=== PATIENT | female | born 1980 | race Caucasian/White ===

== ENCOUNTER 2017-09-26 15:48 | Emergency (ER) | payer MEDICAID, OTHER ==
[2017-09-26 16:02] VITALS: O2SAT 98
--- NOTE | 2017-09-26 16:08 | ERPHSYRPT ---
- History of Present Illness Time Seen by Provider: 09/26/17 16:03 Source: patient Patient Subjective Stated Complaint: PT states "I have two teeth that are really bothering me. One on the left upper and one on the right lower." Triage Nursing Assessment: PT alert and oriented X 3, skin pwd. PT ambulates without difficulty, able to speak in clear full sentences. Physician History: CC: toothaches Hx: 37 y/o patient with toothache. Has seen Dr Schmitt, was referred to [facility], can not go back. Has appt in 2 weeks with a dentist in [place]. Pain in right upper and lower tooth is worse. No fever. No diff breathing or swallowing. States not . No meds and no allergies. Severity: moderate Allergies/Adverse Reactions: No Known Drug Allergies Allergy (Unverified 10/27/13 18:23) Hx Tetanus, Diphtheria Vaccination/Date Given: Yes Hx Influenza Vaccination/Date Given: No Hx Pneumococcal Vaccination/Date Given: No Immunizations Up to Date: Yes - Review of Systems Constitutional: No Fever, No Chills Ears, Nose, & Throat: Mouth Pain (tooth) Respiratory: No Dyspnea Cardiac: No Chest Pain Abdominal/Gastrointestinal: No Abdominal Pain, No Vomiting - Past Medical History Pertinent Past Medical History: No - Past Surgical History Past Surgical History: Yes Gastrointestinal: Cholecystectomy - Social History Smoking Status: Never smoker How long have you smoked: YRS Exposure to second hand smoke: No Drug Use: none Patient Lives Alone: No - Female History Hx Now: No - Nursing Vital Signs Nursing Vital Signs: Initial Vital Signs Temperature 98.1 F 09/26/17 15:58 Pulse Rate 72 09/26/17 15:58 Respiratory Rate 18 09/26/17 15:58 Blood Pressure 115/64 09/26/17 15:58 O2 Sat by Pulse Oximetry 98 09/26/17 15:58 Pain Scale Pain Intensity 8 - Physical Exam General Appearance: alert Eye Exam: bilateral eye: PERRL Cardiovascular/Respiratory Exam: regular rate/rhythm Neurologic Exam: alert, oriented x 3, cooperative, sensation nml, No motor deficits Skin Exam: warm, dry, other (no facial cellulitis), No rash SpO2 Interpretation: normal SpO2: 98 Oxygen Delivery: Room Air Comments: Esotropia. Broken teeth. No trismus. Mild right upper molar gum swelling. - Course Nursing assessment & vital signs reviewed: Yes - Progress Progress Note: 09/26/17 16:06 Rx ketoprofen/ codiene/ pcn. Advised dental follow up. Counseled pt/family regarding: diagnosis, need for follow-up - Departure Time of Disposition: 16:06 Departure Disposition: Home Clinical Impression: Toothache Condition: Stable Critical Care Time: No Referrals: ASTRID PHELAN [Primary Care Provider] - Instructions: Tooth Decay, Adult (DC), Dental Pain (DC) Additional Instructions: Rx pcn. Rx ketoprofen. Rx codiene. See dentist as soon as possible. Prescriptions: Codeine Phosphate/APAP #3 [Tylenol #3 Tablet] 1 tab PO Q4-6HPRN PRN #15 tablet PRN Reason: Pain Ketoprofen 50 mg PO BID #15 capsule Penicillin V Potassium 500 mg PO QID #40 tablet
[2017-09-26 16:10] VITALS: BP 112/62; PULSE 70
== END 2017-09-26 16:14 | disposition home or self-care (01) ==
LOC: ED 15:48
DX: K08.89 Other specified disorders of teeth and supporting structures (principal)
CPT/HCPCS: 99284

== ENCOUNTER 2024-05-15 07:27 | Day surgery (SDC) | payer BC ==
[2024-05-15] MEDS ORDERED: Transderm Scop 1.5MG Patch ONE (07:30)
[2024-05-15] MEDS ORDERED: CEFAZOLIN 2 GM/100 ML NaCl 2 GM/100 ML IVPB IV ONE (07:30)
[2024-05-15] MEDS ORDERED: Lactated Ringers 1,000 ML IV ONE (07:30)
[2024-05-15 07:41] LABS: HCG URINE TEST NEGATIVE (NEGATIVE)
[2024-05-15 07:43] VITALS: O2SAT 97
[2024-05-15] MEDS: CEFAZOLIN 2 GM/100 ML NaCl 2 GM/100 ML IVPB IV SCH (07:43)
[2024-05-15] MEDS: Lactated Ringers 1,000 ML IV SCH (07:43)
[2024-05-15] MEDS: Transderm Scop 1.5MG Patch TOP PRN (07:43)
[2024-05-15] MEDS ORDERED: TORAdol 30 mg Injection ONE (09:18)
[2024-05-15] MEDS ORDERED: Decadron 4 MG INJ ONE (09:18)
[2024-05-15] MEDS ORDERED: DIPRIVAN 200 MG/20 ML IV ONE (09:18)
[2024-05-15] MEDS ORDERED: Xylocaine-Mpf 2% 5 Ml Vial ONE (09:18)
[2024-05-15] MEDS ORDERED: Zofran 4 MG/2 ML VIAL ONE (09:18)
[2024-05-15] MEDS ORDERED: Versed 2 MG/2 ML Injection ONE (09:19)
[2024-05-15] MEDS ORDERED: SUBLIMAZE 100 MCG/2 ML ONE (09:19)
[2024-05-15] MEDS ORDERED: Ephedrine Sulfate 50 MG/ML ONE (09:31)
[2024-05-15] MEDS ORDERED: ROBINUL ONE (09:35)
[2024-05-15 10:35] VITALS: RESP 16
[2024-05-15 10:48] VITALS: BP 113/71; PULSE 57; TEMP 98
--- NOTE | 2024-05-17 11:47 | OP ---
SURGERY DATE/TIME: 05/15/2024 PREOPERATIVE DIAGNOSIS: Menorrhagia. POSTOPERATIVE DIAGNOSIS: Menorrhagia. PROCEDURE: Hysteroscopy, dilatation and curettage with endometrial ablation using NovaSure. SURGEON: Gerard Garvey DO ASSISTANTS: Nidia Miranda ANESTHESIA: General. ESTIMATED BLOOD LOSS: Minimal. COMPLICATIONS: None. FINDINGS: The risks, benefits, indications, and alternatives of the procedure were reviewed with the patient prior to the procedure. The patient understood the risk of infection, bleeding, bowel injury, bladder injury, uterine perforation, pelvic infection, thromboembolic disorder associated with this surgery and desires to have this surgery as a possible means to alleviate her current medical condition. DESCRIPTION OF PROCEDURE AND FINDINGS: At this point, the patient was taken to the operating room, given general sedation, placed in a dorsal lithotomy position, prepped and draped in the usual sterile fashion. A weighted speculum was then placed into the patient's vagina, and the anterior lip of the cervix is grasped with a single-tooth tenaculum. Endocervical dilators were advanced through the endocervical canal as a means to dilate the cervix, and a 5 mm hysteroscope was then placed into fundus of the uterus where visualization appeared to be within normal limits with no gross abnormalities that were noted. The hysteroscope was removed and a curette was then placed into the fundus of the uterus and then at this point, all quadrants of the uterus had been curettaged with the instrument and there was mild to moderate amount of tissue that was retrieved. After curettage, the NovaSure instrument was then taken through the endocervical region towards the fundal region and retracted approximately 1 cm with a depth of 6.5 cm and a width of 3.8 cm. The instrument was then engaged, and the ablative instrument was then turned on for a period of 35 seconds for an ablative time. After complete ablation, the instrument was disengaged and removed from the uterine cavity without complication. From this point, all instruments were subsequently removed from the patient's vaginal region. The patient was then taken out of the dorsal lithotomy position, was taken out of anesthesia, and was then taken to the recovery room in stable condition. All instruments and laps were accounted for x2.
== END 2024-05-15 10:54 | disposition home or self-care (01) ==
LOC: SDC 07:27
PROVIDERS: ATTEND Obstetrics & Gynecology
DX: N92.0 Excessive and frequent menstruation with regular cycle (principal)
CPT/HCPCS: 81025; J0690; J1100; J1885; J2250; J2405; J2704; J3010; A9270-GY

== ENCOUNTER 2024-09-29 19:57 | Emergency (ER) | payer BC, OTHER ==
[2024-09-29 20:09] VITALS: RESP 18; TEMP 97.3; O2SAT 100
--- NOTE | 2024-09-29 20:14 | ERPHSYRPT ---
- History of Present Illness Source: patient Exam Limitations: no limitations Patient Subjective Stated Complaint: pt states she fell on ice this morning and hurt her hand. Triage Nursing Assessment: pt ambulated into the er; pt is axo x4; c/o rt finger pain; pt states 7/10 pain to rt ring finger; swelling present to rt ring finger; good cap refill to rt hand; strong rt radial pulse; skin PDW; no respiratory distress present; vitals wnl Physician History: Patient fell after she slipped on the ice and injured her right hand. She has pain in the right MCP joint and proximal phalanx of the fourth Finger. There is no other trauma. Occurred: this afternoon Allergies/Adverse Reactions: No Known Drug Allergies Allergy (Verified 09/29/24 20:02) Home Medications: Levothyroxine Sodium [Synthroid] 100 mcg PO DAILY 08/25/23 [History] Hx Tetanus, Diphtheria Vaccination/Date Given: Yes Hx Influenza Vaccination/Date Given: No Hx Pneumococcal Vaccination/Date Given: No Immunizations Up to Date: No Travel Risk - International Travel Have you traveled outside of the country in past 3 weeks: No - Emerging Infectious Disease Are you exhibiting symptoms associated with any current EIDs: No - Review of Systems Constitutional: No Symptoms Eyes: No Symptoms Musculoskeletal: Other (See HPI) Skin: No Symptoms Neurological: No Symptoms Psychological: No Symptoms All Other Systems: Reviewed and Negative - Past Medical History Pertinent Past Medical History: Yes Neurological History: No Pertinent History ENT History: No Pertinent History Cardiac History: No Pertinent History Respiratory History: Other Endocrine Medical History: Hypothyroidism Musculoskeletal History: No Pertinent History GI Medical History: No Pertinent History History: No Pertinent History Psycho-Social History: No Pertinent History Female Reproductive Disorders: No Pertinent History Other Medical History: current smoker, excessive snoring - Past Surgical History Past Surgical History: Yes Neuro Surgical History: No Pertinent History Cardiac: No Pertinent History Respiratory: No Pertinent History Gastrointestinal: Cholecystectomy Genitourinary: No Pertinent History Musculoskeletal: No Pertinent History Female Surgical History: Tubal Ligation Other Surgical History: ablation - Female History Hx Last Menstrual Period: ablation Hx Now: No - Social History Smoking Status: Current every day smoker How long have you smoked: YRS Exposure to second hand smoke: Yes Drug Use: none Patient Lives Alone: No - Social Determinants of Health Will the patient participate in the screening: Yes Do you worry about a steady place to live?: No Do you have any problems with any of the following?: No known problems In the past 12 months,have you had to go without utilities?: No Transportation Issues: No Has anyone in your support network made you feel unsafe?: No Have you or anyone in your house had to go without enough: No - Nursing Vital Signs Nursing Vital Signs: Initial Vital Signs Temperature 97.3 F 09/29/24 20:02 Pulse Rate 75 09/29/24 20:02 Respiratory Rate 18 09/29/24 20:02 Blood Pressure 138/70 09/29/24 20:02 O2 Sat by Pulse Oximetry 100 09/29/24 20:02 Pain Scale Pain Intensity 7 - Physical Exam General Appearance: no apparent distress Shoulder Exam: normal inspection Elbow/Forearm Exam: normal inspection Wrist Exam: normal inspection Hand Exam: limited ROM (Tenderness edema and some deformity in the proximal fourth finger.) Neuro/Tendon Exam: normal sensation, normal motor functions Mental Status Exam: alert, oriented x 3 Skin Exam: normal color SpO2: 100 - Course Nursing assessment & vital signs reviewed: Yes Ordered Tests: Active Orders 24 hr Category Date Time Status HAND (MINIMUM 3 VIEWS) Stat Exams 09/29/24 20:09 Taken - Progress Progress Note: 09/29/24 20:58 Patient is stable throughout stay. I got an x-ray did not show any acute findings. Splint would be good for this patient. Quirino have her rest ice and elevate as well 2. Also on the differential was finger fracture metacarpal fracture. Medical Desision Making - Independent Historian Additional History obtained from: Spouse - Diagnostic Testing Diagnostic test were ordered, analyzed, and reviewed by me: Yes Radiological Interpretation: Interpreted by me (Nothing acute as far as fractures ago) - Risk of complications Minimal Risk: Minimal risk of morbidity - Departure Departure Disposition: Home Clinical Impression: Sprain, finger Condition: Stable Critical Care Time: No Referrals: JOBY WAGNER NP [Primary Care Provider] - Follow up/PCP as directed Instructions: Finger Sprain (DC)
[2024-09-29 21:13] VITALS: BP 124/79; PULSE 71
--- NOTE | 2024-10-01 09:47 | XRAY ---
Indication: Trauma. Comparison: None 3 view right hand obtained. No bony, articular, or soft tissue abnormalities.
== END 2024-09-29 21:13 | disposition home or self-care (01) ==
LOC: ED 19:57
DX: S63.614A Unspecified sprain of right ring finger, initial encounter (principal); W00.0XXA Fall on same level due to ice and snow, initial encounter; Z72.0 Tobacco use; Z79.899 Other long term (current) drug therapy
CPT/HCPCS: 73130; 99283

== ENCOUNTER 2024-10-26 10:33 | Emergency (ER) | payer MEDICARE, MEDICAID ==
[2024-10-26 10:42] VITALS: PULSE 74; RESP 20; TEMP 96.9
--- NOTE | 2024-10-26 10:49 | ERPHSYRPT ---
- History of Present Illness Time Seen by Provider: 10/26/24 10:39 Source: patient Exam Limitations: no limitations Physician History: Pt states she has had a right lower toothache for the past 4 days and a right earache for the past 2 days; denies fever, chest pain, shortness of air, headache. Allergies/Adverse Reactions: No Known Drug Allergies Allergy (Verified 10/26/24 10:43) Hx Tetanus, Diphtheria Vaccination/Date Given: Yes Hx Influenza Vaccination/Date Given: No Hx Pneumococcal Vaccination/Date Given: No Travel Risk - Emerging Infectious Disease Are you exhibiting symptoms associated with any current EIDs: No - Review of Systems Constitutional: No Fever Ears, Nose, & Throat: Ear Pain (right for the past 2 days), Other (right lower toothache) Respiratory: No Dyspnea Cardiac: No Chest Pain Abdominal/Gastrointestinal: No Vomiting, No Diarrhea Neurological: No Headache - Past Medical History Pertinent Past Medical History: Yes Neurological History: No Pertinent History ENT History: No Pertinent History Cardiac History: No Pertinent History Respiratory History: Other Endocrine Medical History: Hypothyroidism Musculoskeletal History: No Pertinent History GI Medical History: No Pertinent History History: No Pertinent History Psycho-Social History: No Pertinent History Female Reproductive Disorders: No Pertinent History Other Medical History: current smoker, excessive snoring - Past Surgical History Past Surgical History: Yes Neuro Surgical History: No Pertinent History Cardiac: No Pertinent History Respiratory: No Pertinent History Gastrointestinal: Cholecystectomy Genitourinary: No Pertinent History Musculoskeletal: No Pertinent History Female Surgical History: Tubal Ligation Other Surgical History: ablation - Female History Hx Last Menstrual Period: ablation - Social History Smoking Status: Current every day smoker How long have you smoked: YRS Exposure to second hand smoke: Yes Drug Use: none Patient Lives Alone: No - Social Determinants of Health Will the patient participate in the screening: Yes Do you worry about a steady place to live?: No In the past 12 months,have you had to go without utilities?: No Transportation Issues: No Has anyone in your support network made you feel unsafe?: No Have you or anyone in your house had to go w/o enough food: No - Nursing Vital Signs Nursing Vital Signs: Initial Vital Signs Temperature 96.9 F 10/26/24 10:41 Pulse Rate 74 10/26/24 10:41 Respiratory Rate 20 10/26/24 10:41 Blood Pressure 154/84 10/26/24 10:41 O2 Sat by Pulse Oximetry 96 10/26/24 10:41 - Physical Exam General Appearance: alert Eye Exam: bilateral eye: other (exotropia(ongoing since childhood)) Ear Exam: right ear: TM normal, left ear: other (cerumen occlusion of left ear) Nasal Exam: normal inspection Throat Exam: dental tenderness (mild tenderness over a fractured right mandibular molar with minimal edema of surrounding gum) Neck Exam: normal inspection Cardiovascular/Respiratory Exam: normal breath sounds, heart sounds normal Abdominal Exam: soft Neurologic Exam: alert, cooperative Skin Exam: warm, dry SpO2 Interpretation: normal SpO2: 96 O2 Delivery: Room Air - Progress Progress: unchanged Counseled pt/family regarding: diagnosis, need for follow-up - Departure Departure Disposition: Home Clinical Impression: Tooth abscess Condition: Stable Critical Care Time: No Referrals: YUSUF SANTIAGO [Primary Care Provider] - Follow up/PCP as directed Instructions: Tooth Abscess (DC) Additional Instructions: Follow up with your dentist or family doctor tomorrow. Prescriptions: Amox Tr/Potass Clav. 875 mg [Augmentin 875-125 Tablet] 875 mg PO BID #20 tablet Ibuprofen [IBUPROFEN 400 MG TABLET] 1 tablet PO BIDWM #24 tablet
[2024-10-26] MEDS ORDERED: MOTRIN 600 MG ONE (10:56)
[2024-10-26] MEDS ORDERED: Augmentin 875-125 Tablet ONE (10:56)
[2024-10-26] MEDS: Augmentin 875-125 Tablet PO ONE (10:58)
[2024-10-26] MEDS: MOTRIN 600 MG PO ONE (10:58)
[2024-10-26 11:12] VITALS: BP 123/94; O2SAT 97
== END 2024-10-26 11:20 | disposition home or self-care (01) ==
LOC: ED 10:33
DX: K04.7 Periapical abscess without sinus (principal); K08.89 Other specified disorders of teeth and supporting structures; H92.01 Otalgia, right ear; Z79.899 Other long term (current) drug therapy; Z72.0 Tobacco use
CPT/HCPCS: 99282; 99283; A9270-GY